=== PATIENT | male | born 1995 | race American Indian/Alaskan Native ===

== ENCOUNTER 2021-01-19 09:36 | Emergency (ER) | payer OTHER ==
[2021-01-19 10:09] VITALS: BP 121/84
[2021-01-19 11:32] LABS: Bilirubin,Urine NEG (Negative); Blood,Urine LG (Negative); Color,Urine Yellow (Yellow); Mucus,Urine 2+ /HPF; Urobilinogen,Urine < 2.0 mg/dL (<2.0)
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
--- NOTE | 2021-01-19 13:03 | Cat Scan Report ---
CT ABDOMEN AND PELVIS WITHOUT CONTRAST INDICATION: Left flank pain. TECHNIQUE: Axial CT images were obtained through the abdomen and pelvis without IV contrast. All CT [facility] are performed using CT dose reduction for ALARA by means of automated exposure control. COMPARISON: None available. FINDINGS: LOWER CHEST: No significant abnormality. LIVER: No significant abnormality. GALLBLADDER: No significant abnormality. BILE DUCTS: No significant abnormality. PANCREAS: No significant abnormality. SPLEEN: No significant abnormality. ADRENALS: No significant abnormality. RIGHT KIDNEY and URETER: No significant abnormality. LEFT KIDNEY and URETER: Tiny punctate 1 mm calcification within or adjacent to the left ureterovesica l junction image 158. No hydronephrosis. No intrarenal stones STOMACH and SMALL BOWEL: No significant abnormality. COLON: Moderate amount of solid stool characteristic for constipation APPENDIX: No significant abnormality. PERITONEUM: No free fluid. No free air. No fluid collection. LYMPH NODES: No significant adenopathy. AORTA and ARTERIES: No significant abnormality. IVC and VEINS: No significant abnormality. URINARY BLADDER: No significant abnormality. REPRODUCTIVE ORGANS: No significant abnormality. ADDITIONAL FINDINGS: None. SKELETAL SYSTEM: No significant abnormality. IMPRESSION: 1. Possible tiny nonobstructing punctate 1 mm left UVJ stone. No hydronephrosis 2. Moderate constipation Signer Name: Carmine Zamudio MD Signed: 01/19/2021 12:58 PM Workstation Name: [id number]
== END 2021-01-19 13:50 | disposition home or self-care (01) ==
LOC: ED 09:36
DX: N20.0 Calculus of kidney (principal); K59.00 Constipation, unspecified; R10.12 Left upper quadrant pain; Z98.890 Other specified postprocedural states; Z79.899 Other long term (current) drug therapy
CPT/HCPCS: 74176; 81001; 99283